=== PATIENT | male | born 1945 | race Caucasian/White ===

== ENCOUNTER 2019-01-29 08:42 | Emergency (ER) | payer MEDICARE, OTHER ==
[~2019-01-29] VITALS: Ht 182.9 cm; Wt 108.9 kg
[2019-01-29] MEDS ORDERED: VOLTAREN100 GM TOP (09:47)
[2019-01-29] MEDS ORDERED: LIDO700A20 TOP (09:47)
== END 2019-01-29 09:56 | disposition home or self-care (01) ==
LOC: ER 08:42
DX: S76.012A Strain of muscle, fascia and tendon of left hip, initial encounter (principal); X58.XXXA Exposure to other specified factors, initial encounter
CPT/HCPCS: 99283

== ENCOUNTER → 2020-05-05 | Outpatient (CLI) | payer MEDICARE, OTHER ==
[~2020-05-05] MED LIST: LIDO700A20 TOP; VOLTAREN100 GM TOP
[2020-05-05 20:05] LABS: CHOL/HDL RATIO 4.5; Cholesterol 203 mg/dL (50-200); HDL Cholesterol 45 mg/dL (>39); LDL/HDL RATIO 2.1; Low Density Lipoprotein Chol 94 mg/dL (0-110); Triglycerides 321 mg/dL (30-160); Very Low Density Lipoprot Chol 64 mg/dL (6-32)
[2020-05-05 20:07] LABS: Alanine Aminotransfer (ALT/SGP 37 U/L (12-78); Albumin, Blood 3.9 g/dL (3.4-5.0); Alk Phos 73 U/L (50-136); Anion Gap 5 mmol/L (6-16); Aspartate Aminotrans (AST/SGOT 24 U/L (12-37); Bilirubin, Total 0.2 mg/dL (0.1-1.0); Blood Urea Nitrogen 19 mg/dL (8-24); Bun/Creatinine Ratio 18.3 (12.0-20.0); CO2, Blood 27 mmol/L (21-32); Calcium, Blood 9.4 mg/dL (8.5-10.1); Chloride, Blood 107 mmol/L (98-108); Creatinine, Blood 1.04 mg/dL (0.60-1.20); Globulin, Blood 4.1 g/dL (2.2-4.0); Glomerular Filtration Rate >60 (60-); Glucose, Blood 93 mg/dL (70-99); Potassium, Blood 4.2 mmol/L (3.5-5.5); Sodium, Blood 139 mmol/L (136-145)
== END | disposition home or self-care (01) ==
LOC: LAB SHORT 17:00 → LAB 17:00
PROVIDERS: Family Medicine
DX: Z11.59 Encounter for screening for other viral diseases (principal); I10 Essential (primary) hypertension
CPT/HCPCS: 80053; 80061; 84443; 86803

== ENCOUNTER 2022-06-27 09:02 | Inpatient (IN) | payer MEDICARE, OTHER ==
[~2022-06-27] VITALS: Ht 182.9 cm; Wt 99.8 kg
[2022-06-27 09:52] LABS: BASOPHILS ABSOLUTE AUTO 0.03 K/mm3 (0.00-0.23); BASOPHILS PERCENT AUTO 0 % (0-2); EOSINOPHILS ABSOLUTE AUTO 0.02 K/mm3 (0.00-0.68); EOSINOPHILS PERCENT AUTO 0 % (0-6); Hematocrit 48.6 % (37.0-53.0); Hemoglobin 16.1 g/dL (13.5-17.5); IMMATURE GRAN ABSOLUTE AUTO 0.12 K/mm3 (0.00-0.10); IMMATURE GRAN PERCENT AUTO 1 % (0-1); LYMPHOCYTES ABSOLUTE AUTO 1.24 K/mm3 (0.84-5.20); LYMPHOCYTES PERCENT AUTO 6 % (21-46); MONOCYTES ABSOLUTE AUTO 1.02 K/mm3 (0.16-1.47); MONOCYTES PERCENT AUTO 5 % (4-13); Mean Corpuscular HGB 27.6 pg (26.0-34.0); Mean Corpuscular HGB Conc 33.1 g/dL (31.5-36.5); Mean Corpuscular Volume 83 fL (80-100); Mean Platelet Volume 10.3 fL (9.1-12.4); NEUTROPHILS ABSOLUTE AUTO 18.28 K/mm3 (1.96-9.15); NEUTROPHILS PERCENT AUTO 88 % (41-73); Platelet Count 424 K/mm3 (150-400); RDW Standard Deviation 45.2 fL (35.1-46.3); Red Blood Cell Count 5.83 M/mm3 (4.30-5.90); White Blood Cell Count 20.71 K/mm3 (4.00-11.30)
[2022-06-27 10:07] LABS: Source, Urine Clean Catch
[2022-06-27 10:09] LABS: Albumin, Blood 3.6 g/dL (3.4-5.0); Albumin/Globulin Ratio 0.8 (0.8-1.8); Bilirubin, Total 0.8 mg/dL (0.1-1.0); Bun/Creatinine Ratio 31.8 (12.0-20.0); Calcium, Blood 9.6 mg/dL (8.5-10.1); Creatinine, Blood 1.1 mg/dL (0.60-1.20); Globulin, Blood 4.7 g/dL (2.2-4.0); Potassium, Blood 4.2 mmol/L (3.5-5.5); Total Protein, Blood 8.3 g/dL (6.4-8.2)
[2022-06-27 10:12] LABS: Bilirubin, Urine Neg (Neg); Blood, Urine Neg (Neg); Glucose Qualitative, Urine Neg (Neg); Ketones, Urine Neg (Neg); Leukocyte Esterase, Urine Neg (Neg); Nitrite, Urine Neg (Neg); Protein, Urine 2+ (Neg); Specific Gravity, Urine 1.025 (1.003-1.022); Urobilinogen, Urine NORM (Normal)
[2022-06-27 10:26] LABS: Appearance, Urine Clear (Clear); Color, Urine Yellow (P-Yellow)
[2022-06-27 10:27] LABS: Bacteria Rare /hpf; Red Blood Cells, Urine 0-2 /hpf (0-2); Squamous Epithelial Cells Rare /hpf (Few); White Blood Cells, Urine 0-2 /hpf (0-5)
[2022-06-27 13:37] LABS: International Normalized Ratio 1.04; Prothrombin Time Results 10.9 Sec (9.7-11.5)
[2022-06-27 15:04] VITALS: BP 140/83
[2022-06-27] MEDS ORDERED: IRBE150 PO (15:30)
[2022-06-27] MEDS ORDERED: HYDCHL25 PO (15:31)
--- NOTE | 2022-06-27 18:36 | NUR ---
PT ARRIVED TO THE ROOM AT APPROXIMATELY [id number], WITH PRESENT FOR SUPPORT. PT ALERT, ORIENTED AND INDEPEDNENT. PT STATES PAIN IS TOLERABLE AND REPORTED MILD NAUSEA.
--- NOTE | 2022-06-27 18:37 | NUR ---
SHIFT SUMMARY DR. BERRY CONSULTED AND STATED DR. BILLY WILL F/U WITH PT TOMORROW. NO CHANGES SINCE PT ARRIVED TO THE ROOM.
[2022-06-27 18:45] VITALS: BP 127/75
[2022-06-28] VITALS (15 sets, daily range): BP systolic 105–148; BP diastolic 70–83
[2022-06-28 06:16] LABS: BASOPHILS ABSOLUTE AUTO 0.01 K/mm3 (0.00-0.23); BASOPHILS PERCENT AUTO 0 % (0-2); EOSINOPHILS ABSOLUTE AUTO 0.02 K/mm3 (0.00-0.68); EOSINOPHILS PERCENT AUTO 0 % (0-6); Hematocrit 43.4 % (37.0-53.0); Hemoglobin 14.4 g/dL (13.5-17.5); IMMATURE GRAN ABSOLUTE AUTO 0.06 K/mm3 (0.00-0.10); IMMATURE GRAN PERCENT AUTO 0 % (0-1); LYMPHOCYTES ABSOLUTE AUTO 1.29 K/mm3 (0.84-5.20); LYMPHOCYTES PERCENT AUTO 9 % (21-46); MONOCYTES ABSOLUTE AUTO 1.46 K/mm3 (0.16-1.47); MONOCYTES PERCENT AUTO 10 % (4-13); Mean Corpuscular HGB 27.9 pg (26.0-34.0); Mean Corpuscular HGB Conc 33.2 g/dL (31.5-36.5); Mean Corpuscular Volume 84 fL (80-100); NEUTROPHILS ABSOLUTE AUTO 11.96 K/mm3 (1.96-9.15); NEUTROPHILS PERCENT AUTO 81 % (41-73); Platelet Count 325 K/mm3 (150-400); RDW Standard Deviation 46.4 fL (35.1-46.3); Red Blood Cell Count 5.17 M/mm3 (4.30-5.90)
--- NOTE | 2022-06-28 06:40 | NUR ---
PT VSS T/O NIGHT. ABD REMAINS MILD/MOD DISTENDED, TENDER TO PALP. BT HYPO THIS AM, PT REP NAUSEA THIS AM, NO EMESIS, REP + SMALL LIQ BM. PAIN MGD W/0.5 MG DILAUDID W/REP RELIEF. PT NPO POST MIDNIGHT AWAITING SURGICAL CONSULT. IVF CONT PER ORDERS.
[2022-06-28 06:46] LABS: Albumin, Blood 2.9 g/dL (3.4-5.0); Albumin/Globulin Ratio 0.8 (0.8-1.8); Bilirubin, Total 0.6 mg/dL (0.1-1.0); Bun/Creatinine Ratio 27.7 (12.0-20.0); Calcium, Blood 8.4 mg/dL (8.5-10.1); Creatinine, Blood 0.94 mg/dL (0.60-1.20); Globulin, Blood 3.8 g/dL (2.2-4.0); Potassium, Blood 3.6 mmol/L (3.5-5.5); Total Protein, Blood 6.7 g/dL (6.4-8.2)
--- NOTE | 2022-06-28 12:40 | NUR ---
PT HERE FROM [facility]. History, Chart, Medications and Allergies reviewed before start of procedure.Patient confirms NPO status and agrees with scheduled surgery. Pre-Op teaching done. Pt verbalizes understanding.
--- NOTE | 2022-06-28 17:41 | NUR ---
SHIFT SUMMARY PT POD 0 SIGMOID COLECTOMY, END COLOSTOMY. ANTHONY MIDLINE, C/D/I. L STOMA PINK AND BEEFY. PT DENIES PAIN, ABD STILL MILDLY DISTENDED. HINSON PLACED IN OR, NEEDS FREQUENT IRRIGATION. IRRIGATED TWICE SINCE SURGERY DUE TO BLOT CLOTS IN LINE, PT TOLERATES WELL. TOLERATING ORAL FLUIDS. A&OX4. VS WNL, O2 SAT >95% ON RA. DR. BILLY DISCUSSED SURGERY AND ONCOLOGY REFERRAL WITH FAMILY. PT RESTING COMFORTABLY IN BED, CALL LIGHT WITHIN REACH. WILL REPORT TO [facility] NURSE.
[2022-06-29 04:00] VITALS: BP 132/79
[2022-06-29 04:27] LABS: BASOPHILS ABSOLUTE AUTO 0.02 K/mm3 (0.00-0.23); BASOPHILS PERCENT AUTO 0 % (0-2); EOSINOPHILS PERCENT AUTO 0 % (0-6); Hemoglobin 13.7 g/dL (13.5-17.5); IMMATURE GRAN ABSOLUTE AUTO 0.09 K/mm3 (0.00-0.10); IMMATURE GRAN PERCENT AUTO 1 % (0-1); LYMPHOCYTES ABSOLUTE AUTO 1.41 K/mm3 (0.84-5.20); LYMPHOCYTES PERCENT AUTO 9 % (21-46); MONOCYTES ABSOLUTE AUTO 1.79 K/mm3 (0.16-1.47); MONOCYTES PERCENT AUTO 11 % (4-13); Mean Corpuscular HGB Conc 32.6 g/dL (31.5-36.5); Mean Corpuscular Volume 86 fL (80-100); Mean Platelet Volume 10.1 fL (9.1-12.4); NEUTROPHILS ABSOLUTE AUTO 12.46 K/mm3 (1.96-9.15); NEUTROPHILS PERCENT AUTO 79 % (41-73); Platelet Count 363 K/mm3 (150-400); RDW Coefficient Variation 15.3 % (11.7-14.2); RDW Standard Deviation 47.7 fL (35.1-46.3); Red Blood Cell Count 4.89 M/mm3 (4.30-5.90); White Blood Cell Count 15.77 K/mm3 (4.00-11.30)
[2022-06-29 04:55] LABS: Albumin, Blood 2.9 g/dL (3.4-5.0); Albumin/Globulin Ratio 0.8 (0.8-1.8); Bilirubin, Total 0.7 mg/dL (0.1-1.0); Calcium, Blood 8.4 mg/dL (8.5-10.1); Creatinine, Blood 1.04 mg/dL (0.60-1.20); Globulin, Blood 3.7 g/dL (2.2-4.0); Total Protein, Blood 6.6 g/dL (6.4-8.2)
--- NOTE | 2022-06-29 05:27 | NUR ---
SHIFT SUMMARY POD 1 DC COLECTOMY W/ LEFT ABD COLOSTOMY. PT INDEPENDANT TO BATHROOM, USE OF URINAL. MINIMAL MAROON URINE OUTPUT. BLADDER SCAN COMPLETED W/ 581ML NOTED. PT DECLINES HINSON AT THIS TIME, EDUCATED ON URINARY RETENTION, REPORTS V/U. PT MEDICATED 1X FOR PAIN 05/24. COLOSTOMY APPLIANCE AND ANTHONY CHANGED BY RESERVATIONS MANAGER R/T OSTOMY LEAKAGE. SITE CLEANSED AND DRESSING REAPPLIED. C/D/I OSTOMY EMPTIED W/ 50ML. IV FLUIDS RUNNING T/O NIGHT.
[2022-06-29 07:24] VITALS: BP 144/86
[2022-06-29 09:19] LABS: Source, Urine Foley catheter
[2022-06-29 09:43] LABS: Appearance, Urine Bloody (Clear); Bilirubin, Urine Neg (Neg); Blood, Urine 5+ (Neg); Color, Urine Red (P-Yellow); Glucose Qualitative, Urine Neg (Neg); Ketones, Urine 1+ (Neg); Leukocyte Esterase, Urine Neg (Neg); Nitrite, Urine Neg (Neg); Protein, Urine 4+ (Neg); Urobilinogen, Urine 1+ (Normal)
[2022-06-29 10:03] LABS: Red Blood Cells, Urine TNTC /hpf (0-2)
[2022-06-29 10:06] LABS: Bacteria Rare /hpf; Hyaline Casts 0-2 /lpf (0-2); Squamous Epithelial Cells Rare /hpf (Few)
[2022-06-29 14:44] VITALS: BP 122/74
--- NOTE | 2022-06-29 16:06 | NUR ---
SHIFT SUMMARY PT POD 1 DC COLECTOMY, END COLOSTOMY. ANTHONY MIDLINE, C/D/I. SCANT SANGUINOUS DRAINAGE AT BOTTOM OF DRESSING. COLOSTOMY RED AND BEEFY. SOFT STOOL AND PASSING FLATUS. HINSON INSERTED THIS MORNING, PT REPORTED DIFFICULTY VOIDING, RETAINING URINE >1000ML PER BLADDER SCAN. PT DRAINING SANGUINOUS URINE. CLOT AMOUNT IN CATHETER HAS DECREASED THROUGH THE SHIFT, IRRIGATING HINSON NEEDED. VS WNL, O2 SAT >95% ON RA. A&OX4. AMBULATES/VOIDS INDEPENDENTLY. TOLERATING ORAL FLUIDS, DIET ADVANCED TO REGULAR. PT RESTING IN BED WITH FAMILY AT BEDSIDE, CALL LIGHT WITHIN REACH, WILL REPORT TO [facility] NURSE.
[2022-06-29 18:56] VITALS: BP 119/69
[2022-06-30 03:34] VITALS: BP 136/71
--- NOTE | 2022-06-30 05:18 | NUR ---
POD 2 S/P COLECTOMY+OSTOMY. PT VSS T/O NIGHT. ANTHONY DRESSING W/SEAL AND SX INTACT, NO NEW DRNG NOTED. OSTOMY PUTTING OUT GAS AND LIQ BROWN STOOL. OSTOMY EDUCATION PROVIDED DURING CARE. HINSON DRNG MAROON URINE, HAND IRRIGATION X2 THIS SHIFT R/T CLOTS. PT REP ABD PAIN MINIMAL, DECLINED NEED FOR PAIN MEDS. PT EDDIE PO, DENIED N/V. PT UP IN ROOM W/SBA, EDDIE WELL.
[2022-06-30 05:52] LABS: BASOPHILS ABSOLUTE AUTO 0.03 K/mm3 (0.00-0.23); BASOPHILS PERCENT AUTO 0 % (0-2); EOSINOPHILS ABSOLUTE AUTO 0.12 K/mm3 (0.00-0.68); EOSINOPHILS PERCENT AUTO 1 % (0-6); Hematocrit 37.1 % (37.0-53.0); Hemoglobin 12.2 g/dL (13.5-17.5); IMMATURE GRAN ABSOLUTE AUTO 0.03 K/mm3 (0.00-0.10); IMMATURE GRAN PERCENT AUTO 0 % (0-1); LYMPHOCYTES ABSOLUTE AUTO 1.32 K/mm3 (0.84-5.20); LYMPHOCYTES PERCENT AUTO 14 % (21-46); MONOCYTES ABSOLUTE AUTO 0.97 K/mm3 (0.16-1.47); MONOCYTES PERCENT AUTO 11 % (4-13); Mean Corpuscular HGB Conc 32.9 g/dL (31.5-36.5); Mean Corpuscular Volume 85 fL (80-100); Mean Platelet Volume 9.8 fL (9.1-12.4); NEUTROPHILS PERCENT AUTO 73 % (41-73); Platelet Count 257 K/mm3 (150-400); RDW Standard Deviation 47.2 fL (35.1-46.3); Red Blood Cell Count 4.35 M/mm3 (4.30-5.90); White Blood Cell Count 9.27 K/mm3 (4.00-11.30)
[2022-06-30 06:24] LABS: Bun/Creatinine Ratio 19.3 (12.0-20.0); Creatinine, Blood 0.88 mg/dL (0.60-1.20); Potassium, Blood 3.8 mmol/L (3.5-5.5)
[2022-06-30 07:47] VITALS: BP 125/70
[2022-06-30 15:38] VITALS: BP 136/77
--- NOTE | 2022-06-30 17:54 | NUR ---
SUMMARY: PT IS POD2 COLECTOMY WITH OSTOMY. A/O, VSS. INDEPENDENT IN ROOM. SURGICAL SITE IS WNL, ANTHONY COMPRESSED. OSTOMY PRODUCING FLATTUS, NO STOOL TODAY. PT IS TOLERATING REG DIET, NO N/V. MINIMAL PAIN. HINSON IS DRAINING WELL, NO CLOTS NOTED, URINE IS STILL A DARK MAROON COLOR. DID NOT NEED TO IRRIGATE TODAY..PT IS DRINKING PLENTY OF FLUIDS AND HAS HAD NO COMPLAINT OF BLADDER FULLNESS. NO ACUTE SAFETY CONCERNS.
[2022-06-30 20:25] VITALS: BP 133/74
[2022-07-01 03:34] VITALS: BP 140/81
--- NOTE | 2022-07-01 06:15 | NUR ---
SHIFT SUMMARY POD #3 COLECTOMY/OSTOMY PT IS A&O X4. VSS, ON RA, PAIN WITHIN NORMAL LIMITS, STOMA BRIGHT RED, PRODUCING BROWN LIQUID STOOL & FLATUS. FOLAY CATH REMAINS IN PLACE, 650 ML'S RED COLORED URINE NOTED, PT STOOD UP THIS AM DUE TO PRESSURE IN HIS BLADDER, URINE & SM BLOOD CLOTS LEAKED OUT FROM AROUND THE CATH, HINSON IRRIGATED AT THIS TIME, SMALL CLOTS NOTED, URINE FLOW INCREASED, PT STATES THE PRESSURE WAS RELIEVED. NO OTHER ACUTE CHANGES NOTED, PT WAS ABLE TO SLEEP WITH NO PROBLEMS, HE IS AWAKE & WATCHING TV THIS AM, CALL LIGHT IN REACH, VLADIMIR & REPORT TO DAY RN.
[2022-07-01 07:39] VITALS: BP 148/86
--- NOTE | 2022-07-01 11:38 | NUR ---
DR BILLY IN TO SEE PT.
[2022-07-01 16:10] VITALS: BP 147/89
--- NOTE | 2022-07-01 16:12 | NUR ---
Met with pt and his at bedside. Pt reports feeling "much better" since blockage was removed. They are learning how to change the ostomy appliance today, and planning to follow up with oncology. The pt was diagnosed this week with metastatic cancer. He reports having loose stool for a few months, then began to have n/v and abd pain over the weekend. He came to the hospital and was diagnosed. He had a colostomy placed due to the mass blocking his colon, and he appears to be in good spirits today. Visit to establish repoir, no care planning today.
--- NOTE | 2022-07-01 17:57 | NUR ---
DR BILLY IN TO SEE PT SPOUSE BEDSIDE.
--- NOTE | 2022-07-01 18:53 | NUR ---
SHIFT SUMMARY NO ACUTE CHANGES, POD 3 OF COLECTOMY WITH OSTOMY. CHANGED ABDOMINAL ANTHONY DRESSING TO MEDPIORE DRESSING, C/D/I. SAT IN CHAIR THROUGHOUT DAY, TOLERATED FOOD WELL. DENIED N/V. URINE STARTING TO CLEAR FROM PINK TO YELLOW. DENIED PAIN TODAY. EDUCATED PATIENT WITH OSTOMY CARE. PT LYING IN BED, CALL LIGHT WITHIN REACH.
--- NOTE | 2022-07-01 19:17 | NUR ---
REVIEWED SN DOCUMENTATION.
[2022-07-01 19:27] VITALS: BP 156/89
[2022-07-02 03:52] VITALS: BP 156/88
--- NOTE | 2022-07-02 05:50 | NUR ---
PATIENT IS ALERT AND ORIENTED X4, CALLS TO MAKE NEEDS KNOWN, MILD PAINT TREATED PER MAR X1, SLEPT WELL THROUGH THE NIGHT. HTN, OTHERWISE VSS. TRANSVERSE DRESSING CDI, AND NEW APPLIANCE SEALED WITH LIQUID BROWN OUTPUT. FC DRAINIG PINK URIN WITH NO S/S OF CLOTS OR NEED TO FLUSH. WILL CONT TO MONITOR.
[2022-07-02 07:14] VITALS: BP 148/85
--- NOTE | 2022-07-02 10:07 | NUR ---
REVIEWED SN DOCUMENTATION.
--- NOTE | 2022-07-02 10:07 | NUR ---
REPORTED OFF TO RADU GARCIA RN. RADU TO SUPERVISE CECY CORONADO AND CARE OF PT.
--- NOTE | 2022-07-02 10:15 | NUR ---
PATIENT CONSENT STATEMENT. PATIENT CONSENTED THIS 2ND YEAR RN STUDENT TO PARTICIPATE IN HIS CARE TODAY.
[2022-07-02] MEDS ORDERED: TAMS.4ER PO (10:31)
[2022-07-02] MEDS ORDERED: Norco 5-325 Ta1 EACH PO (10:31)
[2022-07-02 13:40] VITALS: BP 126/67
--- NOTE | 2022-07-02 15:17 | NUR ---
[id number] discharged to home with spouse, ostomy information faxed to [facility]. home health orders received . patient provided with 2 sets of home ostomy kits and medipore dressings for abd incision. pt and his in agreemnt with plans to discharge to home with home health. pt ambulating, pain controlled, yareli po food and fluids, has voided clear yellow urine
== END 2022-07-02 14:27 | disposition home health service (06) | DRG 330 ==
LOC: ER 09:02 → SURS 13:05 → ERHOLD 13:05 → SURS 14:59
PROVIDERS: Emergency Medicine; Family Medicine; Surgery; ADMIT Internal Medicine
PROC: 0DBN0ZZ Excision of Sigmoid Colon, Open Approach (ICD-10-PCS; 2022-06-28)
PROC: 0T9B70Z Drainage of Bladder with Drainage Device, Via Natural or Artificial Opening (ICD-10-PCS; principal; 2022-06-28 11:30)
DX: C18.7 Malignant neoplasm of sigmoid colon (principal); C78.7 Secondary malignant neoplasm of liver and intrahepatic bile duct; K56.600 Partial intestinal obstruction, unspecified as to cause; D62 Acute posthemorrhagic anemia; E87.1 Hypo-osmolality and hyponatremia; R65.10 Systemic inflammatory response syndrome (SIRS) of non-infectious origin without acute organ dysfunction; Z51.5 Encounter for palliative care; I10 Essential (primary) hypertension; R31.9 Hematuria, unspecified; R33.9 Retention of urine, unspecified; Z79.899 Other long term (current) drug therapy
CPT/HCPCS: 36415; 71046; 74177; 80048; 80053; 81001; 82378; 83690; 84484; 85025; 85610; 85730; 87086; 88309; 93005; 93010; 96361; 96374-59; 97112; 97161; 99285-25; A9270; J0690; J1100; J1170; J1650; J1885; J2250; J2405; J2704; J2710; J2795; J3010; J7030; J7120; Q9967

== ENCOUNTER → 2023-09-14 | Outpatient (CLI) | payer OTHER ==
[~2023-09-14] MED LIST changes: +HYDCHL25 PO; +IRBE150 PO; +Norco 5-325 Ta1 EACH PO; +TAMS.4ER PO
[2023-09-14 12:26] LABS: C DIFFICILE DNA NEGATIVE (Negative)
== END | disposition home or self-care (01) ==
LOC: LAB SHORT 09:13 → LAB 09:13 → LAB FUT 05-11 14:55 → EDSTATUS 05-11 14:55
PROVIDERS: Registered Nurse Oncology
DX: K52.1 Toxic gastroenteritis and colitis (principal); L27.0 Generalized skin eruption due to drugs and medicaments taken internally
CPT/HCPCS: 87493

== ENCOUNTER 2024-02-15 13:49 | Emergency (ER) | payer OTHER ==
[~2024-02-15] VITALS: Ht 182.9 cm; Wt 83.9 kg
[2024-02-15 15:03] LABS: BASOPHILS ABSOLUTE AUTO 0.06 K/mm3 (0.00-0.23); BASOPHILS PERCENT AUTO 0 % (0-2); EOSINOPHILS PERCENT AUTO 0 % (0-6); Hemoglobin 11.7 g/dL (13.5-17.5); IMMATURE GRAN ABSOLUTE AUTO 0.66 K/mm3 (0.00-0.10); IMMATURE GRAN PERCENT AUTO 3 % (0-1); LYMPHOCYTES ABSOLUTE AUTO 1.07 K/mm3 (0.84-5.20); LYMPHOCYTES PERCENT AUTO 4 % (21-46); MONOCYTES ABSOLUTE AUTO 0.82 K/mm3 (0.16-1.47); MONOCYTES PERCENT AUTO 3 % (4-13); Mean Corpuscular HGB 27.5 pg (26.0-34.0); Mean Corpuscular HGB Conc 32.5 g/dL (31.5-36.5); Mean Corpuscular Volume 85 fL (80-100); Mean Platelet Volume 9.7 fL (9.1-12.4); NEUTROPHILS ABSOLUTE AUTO 23.02 K/mm3 (1.96-9.15); NEUTROPHILS PERCENT AUTO 90 % (41-73); Platelet Count 138 K/mm3 (150-400); RDW Coefficient Variation 21.1 % (11.7-14.2); RDW Standard Deviation 64.2 fL (35.1-46.3); Red Blood Cell Count 4.25 M/mm3 (4.30-5.90); White Blood Cell Count 25.63 K/mm3 (4.00-11.30)
[2024-02-15 15:23] LABS: Albumin, Blood 3.5 g/dL (3.4-5.0); Albumin/Globulin Ratio 0.9 (0.8-1.8); Bilirubin, Total 0.4 mg/dL (0.1-1.0); Bun/Creatinine Ratio 25.7 (12.0-20.0); Calcium, Blood 8.7 mg/dL (8.5-10.1); Creatinine, Blood 0.86 mg/dL (0.60-1.20); Globulin, Blood 3.9 g/dL (2.2-4.0); Potassium, Blood 3.6 mmol/L (3.5-5.5); Total Protein, Blood 7.4 g/dL (6.4-8.2)
[2024-02-15 15:28] VITALS: BP 117/71
[2024-02-15] MEDS ORDERED: Silver Nitr/Potassium Nitrate 1 EA APPL TOP ONE (15:55)
== END 2024-02-15 16:41 | disposition home or self-care (01) ==
LOC: ER 13:49
PROVIDERS: Physician Assistant
DX: K94.01 Colostomy hemorrhage (principal); I10 Essential (primary) hypertension; Z79.899 Other long term (current) drug therapy
CPT/HCPCS: 80053; 85025; 86850; 86900; 86901; 99285; A9270

== ENCOUNTER 2024-05-07 22:35 | Emergency (ER) | payer OTHER ==
[~2024-05-07] VITALS: Ht 182.9 cm; Wt 83.9 kg
[2024-05-07 22:51] VITALS: BP 129/75
== END 2024-05-08 00:17 | disposition home or self-care (01) ==
LOC: ER 22:35
DX: K94.01 Colostomy hemorrhage (principal); I10 Essential (primary) hypertension; Z79.899 Other long term (current) drug therapy
CPT/HCPCS: 99282